=== PATIENT | male | born 1955 | race Caucasian/White ===

== ENCOUNTER 2019-07-16 08:08 | Observation (INO) ==
[2019-07-16] MEDS ORDERED: *HR* FentaNYL (PF) 100 MCG/2 ML VIAL ONE (09:14)
[2019-07-16] MEDS ORDERED: *HR* Propofol 200 MG/20 ML VIAL IVP ONE (09:14)
[2019-07-16] MEDS ORDERED: *HR* Midazolam HCl 2 MG/2 ML VIAL ONE (09:14)
[2019-07-16] MEDS ORDERED: Tranexamic Acid 1,000 MG/10 ML VIAL ONE (09:20)
[2019-07-16] MEDS ORDERED: Ondansetron 4 MG/2 ML VIAL ONE (09:20)
[2019-07-16] MEDS ORDERED: Lidocaine -MPF 2% 2 ML VIAL ONE (09:20)
[2019-07-16] MEDS ORDERED: CeFAZolin Syr 2,000MG/20 ML 2,000 MG/20 ML SYRINGE IVPB ONE (09:36)
[2019-07-16] MEDS ORDERED: Famotidine 20 MG/2 ML VIAL IVP ONE (09:39)
[2019-07-16] MEDS ORDERED: Pregabalin 75 MG CAPSULE PO ONE (09:40)
[2019-07-16] MEDS ORDERED: Celecoxib 200 MG CAPSULE PO ONE (09:40)
[2019-07-16] MEDS ORDERED: Acetaminophen IV 1,000 MG/100 ML INFUS..BTL IVPB ONE (09:40)
[2019-07-16] MEDS ORDERED: Ringers Solution, Lactated 1,000 ML IVC SCH ×2 (09:45→12:51)
[2019-07-16] MEDS ORDERED: Ethanol\\Acetic Acid\\Na Ace\\Ben 1,000 ML IRRIG.SOLN IR ONE (10:07)
[2019-07-16] MEDS ORDERED: Ropivacaine/PF 0.5% 30 ML VIAL ONE (10:08)
[2019-07-16] MEDS ORDERED: Ondansetron 4 MG/2 ML VIAL IVP ONE (10:12)
[2019-07-16] MEDS ORDERED: *HR* OxyCODONE Immed Rel 5 MG TABLET PO PRN (10:12)
[2019-07-16] MEDS ORDERED: Total Joint Mixture (50 ml) IR ONE (10:30)
[2019-07-16] MEDS ORDERED: Propofol 500 MG/50 ML INFUS..BTL ONE (10:56)
[2019-07-16] MEDS ORDERED: *HR* PHENYLEPHRINE 1,000 MCG/10 ML SYRINGE IVP ONE (11:15)
[2019-07-16] MEDS ORDERED: Naloxone 0.4 MG/ML INJ IVP PRN (12:51)
[2019-07-16] MEDS ORDERED: Ondansetron 4 MG/2 ML VIAL IVP PRN (12:51)
[2019-07-16] MEDS ORDERED: NON-FORMULARY MEDICATION 1 EACH EACH (Ascorbic Acid [Vitamin C] 1,000 MG) PO SCH (12:51)
[2019-07-16] MEDS ORDERED: Sennosides 8.6 MG TABLET PO PRN (12:51)
[2019-07-16] MEDS ORDERED: Temazepam 15 MG CAPSULE PO PRN (12:51)
[2019-07-16] MEDS ORDERED: NON-FORMULARY MEDICATION 1 EACH EACH (Sildenafil Citrate [Viagra] 100 MG) PO PRN (12:51)
[2019-07-16] MEDS ORDERED: *HR* Promethazine 25 MG/ML VIAL IVP PRN (12:51)
[2019-07-16] MEDS ORDERED: MOM Conc 10 ML UD.LIQ PO PRN (12:51)
[2019-07-16 13:13] LABS: Hematocrit 39.2 % (37.5-50.1); Hemoglobin 13.1 g/dL (12.9-16.9)
[2019-07-16] MEDS: Cholecalciferol (D-3) 1,000 UNIT (25MCG) TABLET PO SCH (13:35)
[2019-07-16] MEDS: Multivit/Ca/Min/Fe/FA 1 TAB TABLET PO SCH (13:35)
[2019-07-16] MEDS: Ascorbic Acid 500 MG TABLET PO SCH (16:37)
[2019-07-16] MEDS ORDERED: Simethicone 80 MG TAB.CHEW PO PRN (17:34)
[2019-07-16] MEDS ORDERED: HYDROcodone BIT/Homatropine 5 MG TABLET PO PRN (18:18)
[2019-07-16] MEDS ORDERED: traMADol 50 MG TABLET PO PRN (18:19)
[2019-07-16] MEDS: *HR* OxyCODONE Immed Rel 5 MG TABLET PO PRN ×2 (18:56→22:57)
[2019-07-17] MEDS: *HR* OxyCODONE Immed Rel 5 MG TABLET PO PRN ×5 (02:57→20:47)
[2019-07-17 07:02] LABS: Basophils % 0.1 %; Hematocrit 37.2 % (37.5-50.1); Hemoglobin 13.2 g/dL (12.9-16.9); Immature Granulocytes % 0.5 % (0-4); Lymphocytes # 0.9 K/mcL (0.6-4.6); Mean Corpuscular HGB Conc 35.5 g/dL (31.6-35.5); Mean Corpuscular Hemoglobin 30.1 pg (28.0-33.3); Mean Corpuscular Volume 84.7 fL (83.0-100.0); Mean Platelet Volume 10.3 fL (9.4-12.4); Monocytes # 0.5 K/mcL (0.0-1.3); Monocytes % 3.9 %; Neutrophils # 11.7 K/mcL (1.6-8.9); Platelet Count 191 K/mcL (140-400); Red Blood Count 4.39 M/mcL (4.19-5.50); Red Cell Distribution Width 12.3 % (11.5-14.5); Segmented Neutrophils % 88.5 %; White Blood Count 13.2 K/mcL (4.3-11.1)
[2019-07-17 07:34] LABS: BUN/Creatinine Ratio 19 (6-26); Blood Urea Nitrogen 16 mg/dL (8-23); Calcium 9.1 mg/dL (8.6-10.3); Carbon Dioxide 25 mEq/L (23-29); Chloride 104 mEq/L (98-107); Glucose 131 mg/dL (70-105); Osmolality,Calculated 289 (280-300); Potassium 4.4 mEq/L (3.5-5.1); Sodium 138 mEq/L (136-145); eGFR For African Americans > 60 (> 60); eGFR For Non-African Americans > 60 (> 60)
[2019-07-17] MEDS: Multivit/Ca/Min/Fe/FA 1 TAB TABLET PO SCH (08:31)
[2019-07-17] MEDS: Cholecalciferol (D-3) 1,000 UNIT (25MCG) TABLET PO SCH (08:31)
[2019-07-17] MEDS: Ascorbic Acid 500 MG TABLET PO SCH ×2 (08:31→16:57)
[2019-07-17] MEDS: *HR* Enoxaparin 30 MG/0.3 ML SYRINGE SQ SCH ×2 (11:28→16:57)
[2019-07-17] MEDS: Ketorolac 30 MG/ML VIAL IVP PRN (22:56)
[2019-07-18] MEDS: *HR* OxyCODONE Immed Rel 5 MG TABLET PO PRN ×4 (02:15→15:33)
[2019-07-18 04:27] LABS: Basophils % 0.3 %; Eosinophils % 0.5 %; Immature Granulocytes % 0.2 % (0-4); Lymphocytes # 1.7 K/mcL (0.6-4.6); Lymphocytes % 19.5 %; Mean Corpuscular HGB Conc 33.8 g/dL (31.6-35.5); Mean Corpuscular Hemoglobin 29.9 pg (28.0-33.3); Mean Corpuscular Volume 88.3 fL (83.0-100.0); Mean Platelet Volume 10.5 fL (9.4-12.4); Monocytes # 0.7 K/mcL (0.0-1.3); Monocytes % 7.9 %; Neutrophils # 6.3 K/mcL (1.6-8.9); Platelet Count 144 K/mcL (140-400); Red Blood Count 3.85 M/mcL (4.19-5.50); Red Cell Distribution Width 12.7 % (11.5-14.5); Segmented Neutrophils % 71.6 %; White Blood Count 8.7 K/mcL (4.3-11.1)
[2019-07-18 04:29] LABS: Hemoglobin 11.5 g/dL (12.9-16.9)
[2019-07-18 04:43] LABS: BUN/Creatinine Ratio 27 (6-26); Blood Urea Nitrogen 24 mg/dL (8-23); Calcium 8.4 mg/dL (8.6-10.3); Carbon Dioxide 26 mEq/L (23-29); Chloride 105 mEq/L (98-107); Glucose 106 mg/dL (70-105); Osmolality,Calculated 286 (280-300); Potassium 4.2 mEq/L (3.5-5.1); Sodium 136 mEq/L (136-145); eGFR For African Americans > 60 (> 60); eGFR For Non-African Americans > 60 (> 60)
[2019-07-18] MEDS: *HR* Enoxaparin 30 MG/0.3 ML SYRINGE SQ SCH (05:35)
[2019-07-18] MEDS: Cholecalciferol (D-3) 1,000 UNIT (25MCG) TABLET PO SCH (09:02)
[2019-07-18] MEDS: Ascorbic Acid 500 MG TABLET PO SCH (09:02)
[2019-07-18] MEDS: Multivit/Ca/Min/Fe/FA 1 TAB TABLET PO SCH (09:02)
[2019-07-18] MEDS: Ketorolac 30 MG/ML VIAL IVP PRN (09:02)
[2019-07-18] MEDS ORDERED: Celecoxib 100 MG CAPSULE PO SCH (10:45)
[2019-07-18 15:21] VITALS: BP 140/83
== END 2019-07-18 17:00 | disposition home health service (06) ==
LOC: SAMDAY 08:08 → 3NENU 08:08
PROVIDERS: ADMIT Orthopaedic Surgery; ATTEND Orthopaedic Surgery